=== PATIENT | male | born 1955 | race Caucasian/White ===

== ENCOUNTER 2017-01-23 09:55 | Inpatient (IN) ==
[2017-01-22 15:39] LABS: Basophils # (Auto) 0 K/mcL (0.0-0.3); Basophils % (Auto) 0.4 % (0.0-2.0); Eosinophils # (Auto) 0.1 K/mcL (0.0-0.7); Eosinophils % (Auto) 2.1 % (0.0-7.0); Lymphocytes # (Auto) 0.5 K/mcL (1.5-4.8); Lymphocytes % (Auto) 11.9 % (15.5-49.0); Mean Corpuscular HGB Conc 34.1 g/dL (31.0-36.0); Mean Corpuscular Hemoglobin 36.1 pg (26.0-34.0); Monocytes # (Auto) 0.5 K/mcL (0.1-0.9); Monocytes % (Auto) 12.6 % (1.0-12.0); Platelet Count 104 K/mcL (140-440); RBC 2.33 M/mcL (4.50-5.90)
[2017-01-22 16:13] LABS: ALT/SGPT 35 U/l (0-40); Albumin 3.8 gm/dL (3.2-5.2); Albumin/Globulin Ratio 1.2 (1.0-2.3); Alkaline Phosphatase 64 U/L (39-117); Blood Urea Nitrogen 26 mg/dl (6-20)
[~2017-01-23 09:55] MED LIST: ceFAZolin 1 GM VIAL IV SCH
[2017-01-23] MEDS ORDERED: 0.9 % SODIUM CHLORIDE 250 ML IV SCH ×2 (12:45→15:15)
[2017-01-23] MEDS ORDERED: MIDAZOLAM 5 MG/5 ML VIAL ONE (13:03)
[2017-01-23] MEDS ORDERED: fentaNYL 100 MCG/2 ML VIAL IV ONE (13:03)
[2017-01-23] MEDS ORDERED: ETOMIDATE 20 MG/10 ML VIAL IV ONE (13:03)
[2017-01-23] MEDS ORDERED: ONDANSETRON 4 MG/2 ML VIAL ONE (13:03)
[2017-01-23] MEDS ORDERED: GLYCOPYRROLATE 0.2 MG/ML VIAL IV ONE (13:03)
[2017-01-23] MEDS ORDERED: LIDOCAINE HCL/PF 100 MG/5 ML SYRINGE IV ONE (13:03)
[2017-01-23] MEDS ORDERED: METOCLOPRAMIDE 10 MG/2 ML VIAL IV PRN (14:12)
[2017-01-23] MEDS ORDERED: IPRATROPIUM/ALBUTEROL 3 ML AMPUL.NEB NEB PRN (14:12)
[2017-01-23] MEDS ORDERED: HYDROmorphone 2 MG/ML SYRINGE IV PRN (14:12)
[2017-01-23] MEDS ORDERED: BENZOCAINE/MENTHOL 1 LOZENGE PO PRN (14:12)
[2017-01-23] MEDS ORDERED: METHOCARBAMOL 1,000 MG/10 ML VIAL IV PRN (14:12)
[2017-01-23] MEDS ORDERED: 0.9 % SODIUM CHLORIDE 1,000 ML IV SCH (14:15)
--- NOTE | 2017-01-23 14:48 | Brief Operative Note ---
Date of procedure: 01/23/17 Pre-op diagnosis: Left femur impending pathologic fracture Post-op diagnosis: same Procedure: Left femur intramedullary rodding with long jocelin gamma nail for impending pathologic femur fracture Grafts/Implants: Yes ([place] gamma 400 x 13 125 deg nail, 85 lag screw) Anesthesia: spinal, GLMA Findings: intraop fracture through lesion Complications: other (intraop fracture of femur) Surgeon: Gurvinder Pearl Lining Brusher: Sammy Bajwa Estimated blood loss (cc): 300 Specimens Removed/Pathology: none sent Condition: stable Disposition: PACU
--- NOTE | 2017-01-23 14:52 | Discharge Summary ---
Ortho Discharge Plan - General - Patient Instructions Diet: Renal Activity: weight bearing as tolerated Dressing Care: May shower in 3 days - Follow Up Plan Follow Up Appointments: Sammy Bajwa, [facility] - Disposition: Home, Self-Care Prognosis: Fair Rehab Potential: Good
[2017-01-23] MEDS ORDERED: GABAPENTIN 100 MG CAPSULE PO PRN ×2 (14:55→15:59)
[2017-01-23] MEDS ORDERED: DEXAMETHASONE 4 MG TABLET PO SCH (15:00)
[2017-01-23] MEDS: fentaNYL 100 MCG/2 ML VIAL IV PRN ×4 (15:05→15:20)
--- NOTE | 2017-01-23 15:57 | XRay Report ---
CLINICAL INFORMATION: Postop ORIF subtrochanteric fracture COMPARISON: None. FINDINGS: Oblique fracture in the subtrochanteric region of the proximal femoral diaphysis has been reduced to near-anatomic alignment and transfixed by IM bella, interlocking screws and femoral screw. Moderate soft tissue swelling noted. Left hip, patellofemoral and tibiofemoral joints are normal in width and alignment IMPRESSION: Status post ORIF subtrochanteric fracture - proximal femur in near-anatomic alignment Interpreted and Authenticated by: Clayton Knowles 01/23/17
[2017-01-23] MEDS: HYDROcodone/APAP 10/325MG TABLET PO PRN ×2 (16:02→20:04)
--- NOTE | 2017-01-23 17:29 | XRay Report ---
CLINICAL INFORMATION: Multiple myeloma COMPARISON: None. FINDINGS: There is a 9 mm well-circumscribed radiolucent fusiform lesion in the proximal femoral diaphysis. It is more likely a benign bone lesion such as a nonossifying fibroma that a plasmacytoma. No other osseous lesions appreciated There is only minimal degenerative change in the right hip, patellofemoral and tibiofemoral joints. Soft tissues are normal IMPRESSION: 9 mm well-circumscribed radiolucent lesion in the proximal one third of the femoral diaphysis - more likely benign than malignant. Suggest three month radiographic follow-up and correlation with SPEP/UPEP Mild degenerative change Interpreted and Authenticated by: Clayton Knowles 01/23/17
[2017-01-23] MEDS: SEVELAMER 800 MG TABLET PO SCH ×2 (17:56→19:01)
[2017-01-23] MEDS: HYDROmorphone 2 MG/ML SYRINGE IV PRN (17:56)
[2017-01-23] MEDS: ACYCLOVIR 400 MG TABLET PO SCH (20:03)
[2017-01-23] MEDS: ceFAZolin 1 GM VIAL IV SCH (20:05)
[2017-01-23] MEDS: METOPROLOL SUCCINATE 50 MG TAB.XL.24H PO SCH (20:06)
[2017-01-23] MEDS: 0.9 % SODIUM CHLORIDE 10 ML SYRINGE IV SCH (20:06)
[2017-01-24] MEDS: HYDROcodone/APAP 10/325MG TABLET PO PRN ×5 (00:19→21:19)
[2017-01-24] MEDS: ceFAZolin 1 GM VIAL IV SCH (06:08)
[2017-01-24] MEDS: 0.9 % SODIUM CHLORIDE 10 ML SYRINGE IV SCH ×3 (06:08→21:06)
[2017-01-24 07:21] LABS: Basophils # (Auto) 0 K/mcL (0.0-0.3); Basophils % (Auto) 0.4 % (0.0-2.0); Eosinophils # (Auto) 0.1 K/mcL (0.0-0.7); Eosinophils % (Auto) 2.4 % (0.0-7.0); Granulocytes % (Auto) 75.6 % (38.0-78.0); Lymphocytes # (Auto) 0.5 K/mcL (1.5-4.8); Lymphocytes % (Auto) 11.6 % (15.5-49.0); Mean Cell Volume 106.1 fL (80.0-100.0); Mean Corpuscular HGB Conc 33.4 g/dL (31.0-36.0); Mean Corpuscular Hemoglobin 35.4 pg (26.0-34.0); Monocytes # (Auto) 0.5 K/mcL (0.1-0.9); Platelet Count 73 K/mcL (140-440); RBC 1.57 M/mcL (4.50-5.90); Red Cell Distribution Width 16.3 % (11.5-14.5)
[2017-01-24] MEDS ORDERED: 0.9 % SODIUM CHLORIDE 250 ML IV SCH (07:30)
[2017-01-24 07:34] LABS: ALT/SGPT 9 U/l (0-40); Albumin 2.7 gm/dL (3.2-5.2); Albumin/Globulin Ratio 1.3 (1.0-2.3); Alkaline Phosphatase 40 U/L (39-117); Bilirubin,Direct < 0.2 mg/dL (0.0-0.3); Blood Urea Nitrogen 49 mg/dl (6-20); Gamma Glutamyl Transpeptidase 14 U/L (8-61); Magnesium 1.6 mg/dL (1.6-2.5); Uric Acid 6.4 mg/dL (2.5-8.0)
--- NOTE | 2017-01-24 07:55 | Orthopedic Progress Note ---
Orthopedics - Auxillary Note - Subjective Patient Information: Note initiated : 01/24/17 at 7:54 am Service Date, if different from initiated Date: [] Patient: Christiano Whitaker 61 y/o M admitted on 01/23/17 for Lt Hip Open Treatment and Intramedullary [place] . Chief Complaint: Mild pain bandages c/d/i nvi-distal Vital Signs Temp Pulse Pulse Resp BP BP Pulse Ox 01/24/17 03:21 98.2 F 90 16 115/60 94 01/24/17 02:51 93 01/23/17 23:02 98.0 F 91 H 16 122/74 97 01/23/17 20:00 98.6 F 103 H 16 102/60 93 01/23/17 19:29 95 01/23/17 17:04 93 H 140/74 97 01/23/17 17:00 93 01/23/17 16:59 81 141/76 96 01/23/17 16:55 85 L 01/23/17 16:47 98 H 144/84 96 01/23/17 16:34 94 H 134/71 96 01/23/17 16:18 88 150/74 95 01/23/17 16:03 86 130/52 98 01/23/17 16:00 93 H 147/72 97 01/23/17 15:47 79 132/79 91 01/23/17 15:41 78 130/77 91 01/23/17 15:39 87 129/77 91 01/23/17 15:30 97.0 F L 88 16 138/74 96 01/23/17 15:20 97.0 F L 89 16 137/76 96 01/23/17 15:05 97.0 F L 78 16 117/73 94 01/23/17 15:00 97.0 F L 83 16 125/68 98 01/23/17 14:55 97.0 F L 82 16 118/69 97 01/23/17 14:50 97.0 F L 84 16 106/72 98 01/23/17 12:00 98.4 F 80 16 133/78 97 Intake and Output 01/23/17 01/24/17 01/24/17 21:59 05:59 13:59 Intake Total 400 / 400 425 / 425 Balance 400 / 400 425 / 425 Intake: Oral 425 / 425 IV - Manual Only 400 / 400 Other: Meal [place] Percent of Meal Consumed 100% Feeding Ability Independent Weight 188 lb Laboratory Results - last 24 hr 01/23/17 01/24/17 01/24/17 13:00 06:00 06:00 WBC 4.7 RBC 1.57 L Hgb 5.5 L* Hct 16.6 L* POC Hct 21.0 L* MCV 106.1 H MCH 35.4 H MCHC 33.4 RDW 16.3 H Plt Count 73 L MPV 9.3 Gran % 75.6 Lymph % (Auto) 11.6 L [place] % (Auto) 10.0 Eos % (Auto) 2.4 Baso % (Auto) 0.4 Gran # 3.5 Lymph # 0.5 L [place] # 0.5 Eos # 0.1 Baso # 0 POC Sodium 138 Sodium 136 POC Potassium 4.9 Potassium 5.8 H POC Chloride 100 Chloride 95 L Carbon Dioxide 24 POC Total CO2 27 Anion Gap 17.0 H POC BUN 36 H BUN 49 H Creatinine 9.4 H* POC Creatinine 7.5 H* GFR Calculation 5 Glucose 103 POC Glucose 82 Uric Acid 6.4 Calcium 7.5 L POC WB Ioniz Calcium 1.04 L Phosphorus 7.6 H* Magnesium 1.6 Total Bilirubin < 0.2 Direct Bilirubin < 0.2 GGT 14 AST 22 ALT 9 Alkaline Phosphatase 40 Lactate Dehydrogenase 323 H Total Protein 4.8 L Albumin 2.7 L Globulin 2.1 L Albumin/Globulin Ratio 1.3 Triglycerides 222 H s/p L shoulder manoj arthroplasty-stable mobilize with PT
[2017-01-24] MEDS: CINACALCET 30 MG TABLET PO SCH ×2 (08:30→08:36)
[2017-01-24] MEDS: TORSEMIDE 10 MG TABLET PO SCH (08:30)
[2017-01-24] MEDS: ASPIRIN 325 MG ENTERIC COATED TABLET PO SCH (08:31)
[2017-01-24] MEDS: ACYCLOVIR 400 MG TABLET PO SCH ×2 (08:31→21:05)
[2017-01-24] MEDS: CLOPIDOGREL 75 MG TABLET PO SCH (08:31)
[2017-01-24] MEDS: SEVELAMER 800 MG TABLET PO SCH ×4 (08:31→18:33)
[2017-01-24] MEDS: FOLIC ACID/VITAMIN B COMP W-C 1 TAB TABLET PO SCH (08:31)
[2017-01-24] MEDS: METOPROLOL SUCCINATE 50 MG TAB.XL.24H PO SCH ×2 (08:32→21:06)
[2017-01-24] MEDS ORDERED: DARATUMUMAB IV SCH (09:00)
--- NOTE | 2017-01-24 15:21 | Consultation ---
DATE OF CONSULTATION: 01/24/2017 REASON FOR CONSULTATION: End-stage renal disease. HISTORY OF PRESENT ILLNESS: The patient is a 61-year-old gentleman with history of end-stage renal disease on hemodialysis Tuesdays, , Saturdays at [facility]. He had complained of pain in his left hip for about a week prior to this hospitalization. An x-ray showed a radiolucent lesion. For that reason, he was referred to Dr. Pearl who recommended to have a pin placed to prevent fracture. The patient was hospitalized for that on an elective basis. He is postop now and has significant pain in his left hip. He also dropped his hemoglobin. Otherwise, denies any complaints. PAST MEDICAL HISTORY: Significant for: 1. Multiple myeloma status post bone marrow transplant with subsequent failure. He is followed by Dr. Davey. 2. Pancytopenia. 3. End-stage renal disease on hemodialysis. CURRENT MEDICATIONS: Currently he is on: 1. Quetiapine 50 mg at night. 2. Sertraline 50 mg at night. 3. Renvela 800 mg three with each meal. 4. Hydrocodone 7.5 mg three times daily. ALLERGIES: No significant allergies. FAMILY HISTORY: Known for hypothyroidism and Alzheimer disease. SOCIAL HISTORY: The patient used to smoke but quit a few years ago. He does not drink alcohol. He is retired. He is to his . 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 REVIEW OF SYSTEMS: As in History of Present Illness. PHYSICAL EXAMINATION: GENERAL: Alert, oriented x3 in no apparent distress. VITAL SIGNS: Blood pressures have been 90 to 100 systolic with a diastolic in the 60s, but that is not the usual for him. He usually runs in the 130 to 150s. HEENT: NC/AT. PERRLA. EOMI. No pallor, no cyanosis and no icterus. Fundus examination is not performed. External ear and tympanic membranes appear normal. Oral cavity appears normal. Normal mucosa. NECK: Supple. No jugular venous distention. No lymphadenopathy. No thyromegaly. No carotid bruits. LUNGS: Good air entry bilaterally. No other sounds. CARDIAC: S1, S2 heard. No S3, S4. No murmurs. No rubs. ABDOMEN: Soft, nontender. No organomegaly. Positive bowel sounds. No mass. No rebound. EXTREMITIES: Showed trace edema. LABORATORY DATA: White count is 4.7 with a hemoglobin of 5.5 and a platelet count of 73. His hemoglobin was 8.8 after 2 units of transfusion. His potassium before dialysis was 5.8. ASSESSMENT AND PLAN: 1. End-stage renal disease on hemodialysis three times a week. He had his dialysis today. We could not take out much fluid because his blood pressures are slightly low. We will plan for dialysis on Saturday if he is still here. 2. Anemia, multiple factors including surgery. He received 2 units of packed red cells. We will recheck hemoglobin in the morning. 3. Hypertension, usually he is a hyper but now his blood pressures are low, so we will watch closely. 4. Multiple myeloma. He has been on chemotherapy, and he probably will get radiation to his left femur. WILMAN:gino Job ID: [id number] Doc ID: [id number] Arnulfo Davey MD
[2017-01-25] MEDS: 0.9 % SODIUM CHLORIDE 10 ML SYRINGE IV SCH ×3 (04:55→23:45)
[2017-01-25 05:41] LABS: Basophils # (Auto) 0 K/mcL (0.0-0.3); Basophils % (Auto) 0.3 % (0.0-2.0); Eosinophils # (Auto) 0.1 K/mcL (0.0-0.7); Eosinophils % (Auto) 2.4 % (0.0-7.0); Granulocytes % (Auto) 74.9 % (38.0-78.0); Lymphocytes # (Auto) 0.5 K/mcL (1.5-4.8); Lymphocytes % (Auto) 9.6 % (15.5-49.0); Mean Cell Volume 99.4 fL (80.0-100.0); Mean Corpuscular HGB Conc 33.5 g/dL (31.0-36.0); Mean Corpuscular Hemoglobin 33.3 pg (26.0-34.0); Monocytes # (Auto) 0.7 K/mcL (0.1-0.9); Monocytes % (Auto) 12.8 % (1.0-12.0); Platelet Count 76 K/mcL (140-440); RBC 2.14 M/mcL (4.50-5.90); Red Cell Distribution Width 21.3 % (11.5-14.5)
[2017-01-25] MEDS: HYDROcodone/APAP 10/325MG TABLET PO PRN ×2 (07:32→21:09)
[2017-01-25] MEDS: SEVELAMER 800 MG TABLET PO SCH ×3 (07:32→17:40)
[2017-01-25] MEDS: CINACALCET 30 MG TABLET PO SCH (07:33)
--- NOTE | 2017-01-25 07:55 | Orthopedic Progress Note ---
Orthopedics - Auxillary Note - Subjective Patient Information: Note initiated : 01/25/17 at 7:53 am Service Date, if different from initiated Date: [] Patient: Christiano Whitaker 61 y/o M admitted on 01/23/17 for Lt Hip Open Treatment and Intramedullary [place] . Chief Complaint: mild pain bandages c/d/i nvi-distal Vital Signs Temp Pulse Pulse Resp BP BP Pulse Ox 01/25/17 07:47 99.2 F 20 148/66 92 01/25/17 07:30 93 01/25/17 04:00 99.5 F 104 H 16 130/68 93 01/25/17 00:00 98.2 F 116 H 16 128/70 94 01/24/17 19:46 97 01/24/17 19:42 99.7 F H 111 H 16 130/62 97 01/24/17 16:00 99.8 F H 18 138/76 92 01/24/17 13:14 98.5 F 72 99/64 01/24/17 13:06 85 104/68 01/24/17 12:50 52 L 107/51 01/24/17 12:37 90 92/66 01/24/17 12:19 80 82/61 01/24/17 12:17 98.5 F 18 108/53 93 01/24/17 12:04 60 113/58 01/24/17 11:50 80 78/52 01/24/17 11:40 98.2 F 98 H 91/61 01/24/17 11:22 98.2 F 82 75/44 01/24/17 11:05 90 95/69 01/24/17 10:50 75 117/59 01/24/17 10:35 85 93/52 01/24/17 10:20 98.5 F 88 81/43 01/24/17 10:13 97.6 F 87 84/55 01/24/17 09:53 98.5 F 90 101/60 01/24/17 08:35 95 01/24/17 08:34 72 16 95 Intake and Output 01/24/17 01/25/17 01/25/17 21:59 05:59 13:59 Intake Total 960 / 960 Balance 960 / 960 Intake: Oral 960 / 960 Other: Meal [place] Percent of Meal Consumed 50% Feeding Ability Assist with Tray Set Up Weight 192 lb 8 oz Laboratory Results - last 24 hr 01/24/17 01/25/17 13:17 04:30 WBC 5.3 RBC 2.14 L Hgb 8.8 L 7.1 L Hct 26.2 L 21.2 L MCV 99.4 MCH 33.3 MCHC 33.5 RDW 21.3 H Plt Count 76 L MPV 8.7 Gran % 74.9 Lymph % (Auto) 9.6 L [place] % (Auto) 12.8 H Eos % (Auto) 2.4 Baso % (Auto) 0.3 Gran # 4.0 Lymph # 0.5 L [place] # 0.7 Eos # 0.1 Baso # 0 s/p L hip gamma nailing-stable mobilize with PT
[2017-01-25] MEDS: METOPROLOL SUCCINATE 50 MG TAB.XL.24H PO SCH ×2 (08:42→21:10)
[2017-01-25] MEDS: CLOPIDOGREL 75 MG TABLET PO SCH (08:42)
[2017-01-25] MEDS: ACYCLOVIR 400 MG TABLET PO SCH ×2 (08:42→21:09)
[2017-01-25] MEDS: TORSEMIDE 10 MG TABLET PO SCH (08:42)
[2017-01-25] MEDS: FOLIC ACID/VITAMIN B COMP W-C 1 TAB TABLET PO SCH (08:43)
[2017-01-25] MEDS: ASPIRIN 325 MG ENTERIC COATED TABLET PO SCH (08:43)
--- NOTE | 2017-01-25 09:55 | XRay Report ---
CLINICAL INFORMATION: Gamma nail left femur for subtrochanteric fracture COMPARISON: None. FINDINGS: Multiple digital images from the OR are submitted. Final images shows the obliquely oriented subtrochanteric fracture in near-anatomic alignment and transfixed by gamma nail IMPRESSION: ORIF subtrochanteric fracture in near-anatomic alignment transfixed by gamma nail Interpreted and Authenticated by: Clayton Knowles 01/25/17
[2017-01-25] MEDS ORDERED: 0.9 % SODIUM CHLORIDE 250 ML IV SCH (10:15)
--- NOTE | 2017-01-25 16:00 | Nephrology Progress Note ---
Subjective Patient information: Note initiated : 01/25/17 at 3:58 pm Service Date, if different from initiated Date: [] Patient: Christiano Whitaker 61 y/o M admitted on 01/23/17 for Lt Hip Open Treatment and Intramedullary [place] . Chief Complaint: Pain in his hip Objective - Vital Signs Vital signs: Vital Signs Temp Pulse Pulse Resp BP BP Pulse Ox 01/25/17 15:26 99.4 F 134/89 01/25/17 15:22 99.4 F 61 134/89 01/25/17 14:56 65 124/85 01/25/17 14:35 99.0 F 61 132/89 01/25/17 14:21 99.2 F 61 119/81 01/25/17 13:56 55 L 139/83 01/25/17 13:42 60 126/76 01/25/17 13:27 103 H 102/66 01/25/17 13:21 98.7 F 51 L 120/81 01/25/17 13:06 99.3 F 58 L 120/79 01/25/17 12:57 99.5 F 100 H 121/78 01/25/17 11:34 99.3 F 20 138/72 92 01/25/17 07:47 99.2 F 20 148/66 92 01/25/17 07:30 93 01/25/17 04:00 99.5 F 104 H 16 130/68 93 01/25/17 00:00 98.2 F 116 H 16 128/70 94 01/24/17 19:46 97 01/24/17 19:42 99.7 F H 111 H 16 130/62 97 01/24/17 16:00 99.8 F H 18 138/76 92 Intake and Output 01/25/17 01/25/17 01/25/17 05:59 13:59 21:59 Intake Total 120 / 120 625 / 625 Output Total 49 / 4913 69163 / 51882 Balance -4793 / -4793 -9811 / -9811 Intake: Oral 120 / 120 300 / 300 Blood Product 325 / 325 Output: Hemodialysis UF 4912 / 49 02627 / 59275 Other: Meal [place] Percent of Meal Consumed 75% Feeding Ability Independent Intake & Output: Intake & Output 01/25/17 01/25/17 01/25/17 05:59 13:59 21:59 Intake Total 120 / 120 625 / 625 Output Total 4913 / 4913 09791 / 51330 Balance -4793 / -4793 -9811 / -9811 Intake: Oral 120 / 120 300 / 300 Blood Product 325 / 325 Output: Hemodialysis UF 4913 / 4913 18618 / 94779 Other: Meal Breakfast Percent of Meal Consumed 75% Feeding Ability Independent - General Appearance General appearance: well-developed EENT: ATNC Neck: no JVD Respiratory: no kyphosis Cardiology: no murmurs Gastrointestinal: normoactive bowel sounds Integumentary: no rash Neurologic: no focal deficit Musculoskeletal: no deformities Psychiatric: mood/affect appropriate - Lab 01/25/17 04:30 01/24/17 06:00 Most recent lab results Calcium 7.5 mg/dl (8.6-10.4) L 01/24/17 06:00 Phosphorus 7.6 mg/dL (2.7-4.5) H* 01/24/17 06:00 Magnesium 1.6 mg/dL (1.6-2.5) 01/24/17 06:00 Assessment and Plan (1) Chronic kidney disease Status: Acute Comment: Patient is seen on dialysis. Will take out 3000ml of fluid. He will have two units of prbcs.
[2017-01-25] MEDS: HYDROmorphone 2 MG/ML SYRINGE IV PRN (17:40)
[2017-01-25] MEDS ORDERED: BISACODYL 10 MG SUPP.RECT PR PRN (20:13)
[2017-01-25] MEDS: DOCUSATE SODIUM 100 MG CAPSULE PO SCH (21:59)
[2017-01-26] MEDS: HYDROcodone/APAP 10/325MG TABLET PO PRN ×2 (02:15→08:25)
[2017-01-26] MEDS: 0.9 % SODIUM CHLORIDE 10 ML SYRINGE IV SCH (05:19)
[2017-01-26 07:00] LABS: Basophils # (Auto) 0 K/mcL (0.0-0.3); Basophils % (Auto) 0.5 % (0.0-2.0); Eosinophils # (Auto) 0.1 K/mcL (0.0-0.7); Eosinophils % (Auto) 2.1 % (0.0-7.0); Granulocytes % (Auto) 75.4 % (38.0-78.0); Lymphocytes # (Auto) 0.5 K/mcL (1.5-4.8); Lymphocytes % (Auto) 9.3 % (15.5-49.0); Mean Cell Volume 96.8 fL (80.0-100.0); Mean Corpuscular HGB Conc 34.1 g/dL (31.0-36.0); Monocytes # (Auto) 0.7 K/mcL (0.1-0.9); Monocytes % (Auto) 12.7 % (1.0-12.0); Platelet Count 81 K/mcL (140-440); RBC 2.74 M/mcL (4.50-5.90); Red Cell Distribution Width 19.5 % (11.5-14.5)
[2017-01-26 07:55] LABS: ALT/SGPT < 5 U/l (0-40); Albumin 2.6 gm/dL (3.2-5.2); Albumin/Globulin Ratio 0.9 (1.0-2.3); Alkaline Phosphatase 55 U/L (39-117); Bilirubin,Direct < 0.2 mg/dL (0.0-0.3); Blood Urea Nitrogen 25 mg/dl (6-20); Gamma Glutamyl Transpeptidase 16 U/L (8-61); Magnesium 1.9 mg/dL (1.6-2.5); Uric Acid 3.3 mg/dL (2.5-8.0)
[2017-01-26] MEDS: CLOPIDOGREL 75 MG TABLET PO SCH (08:26)
[2017-01-26] MEDS: ACYCLOVIR 400 MG TABLET PO SCH (08:26)
[2017-01-26] MEDS: SEVELAMER 800 MG TABLET PO SCH (08:27)
[2017-01-26] MEDS: ASPIRIN 325 MG ENTERIC COATED TABLET PO SCH (08:27)
[2017-01-26] MEDS: CINACALCET 30 MG TABLET PO SCH (08:29)
[2017-01-26] MEDS: TORSEMIDE 10 MG TABLET PO SCH (08:30)
[2017-01-26] MEDS: FOLIC ACID/VITAMIN B COMP W-C 1 TAB TABLET PO SCH (08:31)
[2017-01-26] MEDS: METOPROLOL SUCCINATE 50 MG TAB.XL.24H PO SCH (08:31)
[2017-01-26] MEDS: DOCUSATE SODIUM 100 MG CAPSULE PO SCH (08:32)
[2017-01-26] MEDS ORDERED: HEPARIN SODIUM,PORCINE/PF 500 UNIT/5 ML SYRINGE IV ONE (08:49)
== END 2017-01-26 09:15 ==
LOC: MEDSUR 09:55 → EDSTATUS 12:00
PROVIDERS: ADMIT Orthopaedic Surgery; ATTEND Orthopaedic Surgery